=== PATIENT | female | born 1980 | race Caucasian/White ===

== ENCOUNTER 2023-09-02 08:26 | Day surgery (SDC) | payer OTHER ==
[2023-09-01 16:40] VITALS: BMI 25.6
[2023-09-02 09:31] LABS: #Eosinphils 0.1 thou/uL (0.0-0.7); #Monocytes 0.3 thou/uL (0.11-0.59); #Neutrophils 1.3 thou/uL (1.40-6.50); %Basophils 0.7 % (0.0-1.0); %Eosinophils 2.6 % (0.0-10.0); %Lymphocytes 38.4 % (21.0-51.0); %Monocytes 11.8 % (0.0-10.0); %Neutrophils 46.5 % (42.0-75.0); Hemoglobin 12.9 g/dL (12.0-16.0); Mean Corpuscular HGB CONC 33.9 g/dL (32.0-36.0); Mean Corpuscular Hemoglobin 33.8 pg (27.0-31.0); Mean Corpuscular Volume 99.5 fl (78.0-98.0); Mean Platelet Volume 9.2 fL (7.4-10.4); Platelet Count 208 10x3/uL (130-400); RBC Distribution Width 11.7 % (11.5-14.5); Red Blood Cell (RBC) Count 3.82 mill/uL (4.20-5.40); White Blood Cell (WBC) Count 2.7 10x3/uL (4.8-10.8)
[2023-09-02 09:47] LABS: BHCG - Serum Negative (NEGATIVE); Pregs Control Bar Appear? YES (CONTROL BAR)
[2023-09-02 09:48] LABS: Pregs Control Background? CLEAR/WHITE (CLR/WHITE)
[2023-09-02 09:53] LABS: INR-International Normal Ratio 1.1; Prothrombin Time 14.1 sec (12.0-14.7)
[2023-09-02] MEDS ORDERED: Ketorolac Tromethamine 30 MG/ML VIAL ONE (09:58)
[2023-09-02] MEDS ORDERED: Midazolam HCl 2 mg/2 ml Vial ONE (09:58)
[2023-09-02] MEDS ORDERED: Famotidine/PF 20 mg/2ml Vial ONE (10:11)
[2023-09-02] MEDS ORDERED: Rocuronium Bromide 10 MG/ML (10ML VIAL) ONE ×2 (11:18→11:40)
[2023-09-02] MEDS ORDERED: PROPOFOL 20 ML ONE (11:18)
[2023-09-02] MEDS ORDERED: Ondansetron PF 4 MG/2 ML Vial ONE ×3 (11:18→14:38)
[2023-09-02] MEDS ORDERED: Dexamethasone 4 mg/ml Vial ONE ×2 (11:19→13:18)
[2023-09-02] MEDS ORDERED: EPINEPHrine 1 MG/ML VIAL ONE (11:20)
[2023-09-02] MEDS ORDERED: Fentanyl 250 MCG/5 ML VIAL ONE (11:20)
[2023-09-02] MEDS ORDERED: Thrombin 5000 UNITS/5 ML VIAL ONE (11:22)
[2023-09-02] MEDS ORDERED: Vancomycin 1 GM VIAL ONE (11:22)
[2023-09-02] MEDS ORDERED: Bupivacaine PF 0.5% 30 ML VIAL ONE (11:22)
[2023-09-02] MEDS ORDERED: CEFAZOLIN 2 GM VIAL ONE (11:32)
[2023-09-02] MEDS ORDERED: Sodium Chloride 0.9% 100 ML ONE (11:32)
[2023-09-02] MEDS ORDERED: Dexamethasone 20 MG/5 ML VIAL ONE (11:40)
[2023-09-02] MEDS ORDERED: PROPOFOL 200 MG/20 ML VIAL ONE (11:40)
[2023-09-02] MEDS ORDERED: SUGAMMADEX SODIUM 200 MG/2 ML VIAL ONE (13:49)
[2023-09-02] MEDS ORDERED: diphenhydrAMINE 50 MG/ML VIAL ONE (14:38)
[2023-09-02] MEDS ORDERED: fentaNYL 50 mcg/mL 1 mL Vial ONE (15:09)
[2023-09-02] MEDS ORDERED: Acetaminophen/Codeine 30-300mg Tablet ONE (16:22)
== END 2023-09-02 17:07 | disposition home or self-care (01) ==
LOC: SDC 08:26
PROVIDERS: ATTEND Neurological Surgery
PROC: 0SB40ZZ Excision of Lumbosacral Disc, Open Approach (ICD-10-PCS; principal; 2023-09-02)
PROC: 01NB0ZZ Release Lumbar Nerve, Open Approach (ICD-10-PCS; principal; 2023-09-02)
DX: M48.062 Spinal stenosis, lumbar region with neurogenic claudication (principal); M51.16 Intervertebral disc disorders with radiculopathy, lumbar region
CPT/HCPCS: 84703; 85025; 85610; 85730; J0171; J1100; J1200; J1885; J2250; J2405; J2704; J3010; J3370; J3490; S0020; S0028